=== PATIENT | female | born 1975 | race Caucasian/White ===

== ENCOUNTER 2016-11-12 14:00 | Inpatient (IN) | payer OTHER ==
[~2016-11-12] VITALS: Ht 165.1 cm; Wt 62.8 kg
--- NOTE | ~2016-11-12 | CON ---
PATIENT'S NAME: GREGG MIRANDA [facility] AGE: 41 Y [address] ROOM: [place] [address] LOCATION: [facility] ADMIT DATE: 11/12/2016 Consultation DISCHARGE DATE: FAMILY PHYSICIAN: Leticia Rodrigues MD ATTENDING PHYSICIAN: Wesley BUCHANAN REFERRING PHYSICIAN: EVERETT BHATT MD A consult for Dr. Buchanan, hospitalist. HISTORY OF PRESENT ILLNESS: This pleasant, 41-year-old lady is referred for rehab evaluation, admitted on 11/12 with sudden onset of left upper extremity and to some extent left lower extremity weakness, and she noticed to have mild left facial droop also with some slurring of speech. CT scan was done in the local hospital which showed grossly to be within normal limits; however, MRI on 11/12 showed 2 areas of acute ischemic infarct in the right hemisphere. No hemorrhage or mass effect. PAST HISTORY OF SIGNIFICANCE: She has history of hereditary hemorrhagic telangiectasias. Does not smoke or drink, and she told me that she has no hypertension or diabetes. PHYSICAL EXAMINATION: VITAL SIGNS: Blood pressure 116/76, temperature 97.9, pulse 86, and respiration rate 16. She is 5 feet 5 inches tall and weighs 64.7 kg. HEENT: Head: Normocephalic. No visual cut or neglect at the present time. No double vision. Very mild left facial weakness. Tongue and soft palate are moving symmetrical. Voice is clear and not wet. Can move left upper extremity fairly well and left lower extremity also. She tells me that has recovered very nicely. Deep tendon reflexes are present and equal throughout. Good bowel and bladder control so far. MEDICATIONS: She is on the following medications: 1. Aspirin. 2. Labetalol hydrochloride. 3. Ambien. 4. Tylenol. 5. NaCl 0.9%. 6. Artificial Tears. 7. Lipitor. 8. Protonix. PATIENT'S NAME: GREGG MIRANDA [facility] AGE: 41 Y [address] ROOM: [place] [address] LOCATION: [facility] ADMIT DATE: 11/12/2016 Consultation DISCHARGE DATE: FAMILY PHYSICIAN: Leticia Rodrigues MD ATTENDING PHYSICIAN: Wesley BUCHANAN ASSESSMENT AND PLAN: At this time, she has made good recovery. I feel she can go on outpatient and follow with her family physician. She should not drive for the time being until she is reevaluated. I will continue her PT, OT, and speech which has been already initiated. I will follow alongside with you while she is here. Thank you for this referral. If she does not do well, I will re-evaluate her for possible rehab admission. ANTHONY BERRY MD WMMarya/modl /[id number] d: 11/13/16 1515 t: 11/14/16 0809, CONSULTATION REPORT
--- NOTE | ~2016-11-12 | DS ---
PATIENT'S NAME: GREGG MIRANDA [facility] AGE: 41 Y [address] ROOM: [address] [place], [place] [address] LOCATION: [facility] ADMIT DATE: 11/12/2016 Discharge Summary DISCHARGE DATE: 11/15/2016 FAMILY PHYSICIAN: Leticia Rodrigues MD ATTENDING PHYSICIAN: Wesley LOPES PRINCIPAL DIAGNOSES: 1. Cryptogenic right ischemic stroke. 2. History of hereditary hemorrhagic telangiectasias. 3. 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 4. Dyslipidemia. 5. PFO on the transesophageal echocardiogram. HOSPITAL COURSE: This is a 41-year-old lady with a past medical history of possible hereditary hemorrhagic telangiectasias presented to the [facility] with possible TIA. She felt numbness of her left upper extremity as well as weakness of the left lower extremity. In the emergency department, she was also noted to have slurred speech. She had a CAT scan of the head done which was unremarkable. The patient's symptoms improved during the stay and was sent back with some left arm paresthesias. Neuro Tele consult was called and it was decided to admit the patient to the [facility]. Here neurological consultation was obtained and MRI of the brain was done, which did reveal two areas of acute ischemic infarct in the right hemisphere. No hemorrhagic or mass affect was seen. MRA of the head was done, which was unremarkable. Doppler study of the carotids were done which were unremarkable as well. A transesophageal echocardiography was also done, which per verbal report showed evidence of PFO. I do not still have the official report yet. The patient will be sent home on aspirin at this point. I had a discussion with the patient regarding this happening and I advised her to schedule an appointment with the [facility] and we will make arrangements for that. She also carries the history of hemorrhagic telangiectasia for which she also needs a pulmonary consult as multiple family members did have hemorrhage in the lung necessitating lobectomies. DISCHARGE MEDICATIONS: Include: 1. Aspirin 81 mg p.o. every day. 2. Tylenol 650 mg p.o. every 4 hours as needed for pain. 3. Depo Provera 150 mg IM. 4. Polyvinyl alcohol 1 drop in the eye. ACTIVITY: No driving for 3 months until re-evaluation. FOLLOWUP: Appointment with Dr. Shoemaker for HHD and follow up with Neurology in 2 weeks at the [facility] for further workup of her cryptogenic stroke which could be related to PFO. PATIENT'S NAME: GREGG MIRANDA [facility] AGE: 41 Y [address] ROOM: [place] [address] LOCATION: [facility] ADMIT DATE: 11/12/2016 Discharge Summary DISCHARGE DATE: 11/15/2016 FAMILY PHYSICIAN: Leticia Rodrigues MD ATTENDING PHYSICIAN: Wesley LOPES MD DAMIAN GODINEZ/ashley /[id number] d: 11/16/16 0101 t: 11/23/16 1313, DISCHARGE SUMMARY
--- NOTE | ~2016-11-12 | ECHO ---
Transesophageal Echocardiography Report (DURAN) Demographics Patient Name GREGG MIRANDA Date of Study 11/14/2016 Patient Number [id number] Visit Number [id number] Date of 1975 Room Number G6230 Gender Female Number Age 41 year(s) Referring Jon Rene Camera Maker Rebecca Angeles RDCS, Physician MD PEARSONT Ravi Curiel MD Physician Interpreting Jon Rene Supervisor Shipfitters Physician MD Supervising Ordering Jon Rene MD/KHANHP Physician MD Nurse Stress Gripper Installer Conclusions Summary PFO. Procedure Type of Study DURAN procedure Procedure Date Date: 11/14/2016 Start: 03:42 PM Study Location: Inpatient Portable Technical Quality: Adequate visualization Indications:CVA. Appropriate Use Criteria: 9 Patient Status: Routine HR: 86 bpm BP: 110/76 mmHg O2 Saturation: 97 % DURAN Performed By: the attending and the executive pilot Type of Anesthesia: Moderate sedation Contractility Score LV regional wall motion:(0-Non visualized 1-Normal 2-Hypokinesis 3-Akinesis 4-Dyskinesis 5-Aneurysm) Signature dtt: Anju Webb dtd: 11/14/16 1542 Physician Self Edit
--- NOTE | ~2016-11-12 | ECHO ---
Transthoracic Echocardiography Report (TTE) Demographics Patient Name GREGG MIRANDA Date of Study 11/13/2016 Patient Number [id number] Visit Number [id number] Date of 1975 Room Number G6230 Gender Female Number Age 41 year(s) Referring Dewayne Olson Body Designer Radha Espana, Physician RT,RVT,RDCS Physician Interpreting Jon Rene MD Mail Handler Equipment Operator Physician Supervising Ordering Dewayne Olson MD/MLP Physician Nurse Stress Software Client Architect Conclusions Contractility Score Summary Normal Left Ventricular contractility was noted. Summary Normal cardiac chamber sizes. No significant valvular abnormalities. Normal LV size and function. Procedure Type of Study TTE procedure:2D Echocardiogram, M-Mode, Doppler , Color Doppler. Procedure Date Date: 11/13/2016 Start: 07:23 AM Study Location: Inpatient Portable Technical Quality: Good visualization Appropriate Use Criteria: 9 Patient Status: Routine HR: 79 bpm BP: 116/76 mmHg M-Mode/2D Measurements LV Diastolic Dimension: 4.51 cm LV Systolic Dimension: 2.82 cm LV Septum Diastolic: 0.58 cm LV Septum Systolic: 1.01 cm LV PW Diastolic: 0.72 cm LV PW Systolic: 1.04 cm Cardiac Output: 3.23 l/min AO Root Dimension: 2.9 cm RV Diastolic Dimension: 1.98 cm LA Dimension: 1.6 cm EF Estimated: 65 % MV EPSS: 0.3 cm LVOT: 1.8 cm LVOT VTI: 16.1 cm LV Stroke volume: 40.95 ml Doppler Measurements AV Peak Velocity: 1.21 m/s MV Peak E-Wave: 0.83 m/s AV Peak Gradient: 5.86 mmHg MV Peak A-Wave: 0.5 m/s AV Mean Gradient: 3 mmHg MV E/A Ratio: 1.66 LVOT Peak Velocity: 0.82 m/s MV P1/2t: 52 msec TR Gradient:6.66 mmHg PV Peak Velocity: 0.84 m/s Estimated RAP:10 mmHg PV Peak Gradient: 2.84 mmHg Estimated RVSP: 17 mmHg Estimated PASP: 16.66 mmHg E' Septal Velocity: 0.09 m/s A' Septal Velocity: 0.07 m/s MV E/E' Ratio: 9.6 Findings Left Ventricle Normal left ventricle size and function. Right Ventricle Normal right ventricle structure and function. Left Atrium Normal left atrial size. Right Atrium Normal right atrial size. Mitral Valve Normal mitral valve structure and function. Aortic Valve Normal aortic valve structure and function. Tricuspid Valve Normal tricuspid valve structure and function. Pulmonic Valve Normal pulmonic valve structure and function. Pericardial Effusion No evidence of pericardial effusion. Miscellaneous Visualized portions of the aortic root and ascending aorta appear normal in size. Pleural Effusion No evidence of pleural effusion. Contractility Score LV regional wall motion:(0-Non visualized 1-Normal 2-Hypokinesis 3-Akinesis 4-Dyskinesis 5-Aneurysm) Signature dtt: Anju Webb dtd: 11/13/16 0723 Physician Self Edit
--- NOTE | ~2016-11-12 | ENPV ---
Carotid Duplex Study Demographics Patient Name GREGG MIRANDA Date of Study 11/13/2016 Patient Number [id number] Gender Female Date of 1975 Age 41 Visit Number [id number] Height 65 Accession Number [id number] Weight 142 Referring Dewayne Malhotra Physician Physician Physician Ordering Dewayne Olson District Recruiter Physician Plastic Press Operator Radha Espana, RT,RVT,RDCS Conclusions Summary TECHNIQUE: Ultrasound assessment of the carotids, vertebrals, and subclavians in standard fashion with image documentation utilizing driscoll scale, spectral Doppler, and color flow. FINDINGS: No plaque or malformation is seen within the carotids on either side. Flow velocities are within normal limits. The vertebrals show patency with antegrade flow bilaterally. IMPRESSION: 1. NORMAL CAROTID DOPPLER EXAM. Procedure Type of Study: Cerebral:Carotid, Carotid Doppler Bilateral. Appropriate Use Criteria:9 Patient Status:Routine. Study Location:Inpatient Portable. Technical Quality:Good visualization. Velocities are measured in cm/s ; Diameters are measured in cm Carotid Right Measurements Carotid Left Measurements + +--------+--------+ + + + +--------+- -------+ + + !Location !PSV !EDV !Angle !%Stenosis ! !Location !PSV !E DV !Angle !%Stenosis ! + +--------+--------+ + + + +--------+- -------+ + + !Prox CCA !111 !26 !60 !Normal ! !Prox CCA !83 !2 0 !60 !Normal ! + +--------+--------+ + + + +--------+- -------+ + + !Dist CCA !93 !22 !60 !Normal ! !Dist CCA !84 !2 9 !60 !Normal ! + +--------+--------+ + + + +--------+- -------+ + + !Prox ICA !89 !28 !60 !Normal ! !Prox ICA !64 !2 5 !60 !Normal ! + +--------+--------+ + + + +--------+- -------+ + + !Mid ICA !89 !34 !60 !Normal ! !Mid ICA !70 !3 2 !54 !Normal ! + +--------+--------+ + + + +--------+- -------+ + + !Dist ICA !87 !39 !60 !Normal ! !Dist ICA !79 !3 6 !54 !Normal ! + +--------+--------+ + + + +--------+- -------+ + + !Prox ECA !95 ! !60 !Normal ! !Prox ECA !118 ! !60 !Normal ! + +--------+--------+ + + + +--------+- -------+ + + !Vertebral !40 ! !60 !Normal ! !Vertebral !70 ! !60 !Normal ! + +--------+--------+ + + + +--------+- -------+ + + - There is antegrade vertebral flow noted on the right side. - There is antegrade verte bral flow noted on the left side. - Add'l Measurements:Subclavian PRV 88 cm/sICAPSV/CCAPSV - Add'l Measurements:Subcl jailyn PRV 93 cm/sICAPSV/CCAPSV 0.8.ICAEDV/CCAEDV 1.52. 0.95.ICAEDV/CCAEDV 1.82. Impressions Right Impression Right vertebral antegrade flow. No significant plaque or stenosis seen. Appearance of solid mass in right thyroid. Left Impression Left vertebral antegrade flow. No significant plaque or stenosis seen. Signature dtt: Fabricio Morillo dtd: 11/13/16 0747 Physician Self Edit
--- NOTE | ~2016-11-12 | CON ---
PATIENT'S NAME: GREGG MIRANDA [facility] AGE: 41 Y [address] ROOM: [address] [place], [place] [address] LOCATION: [facility] ADMIT DATE: 11/12/2016 Consultation DISCHARGE DATE: FAMILY PHYSICIAN: Leticia Rodrigues MD ATTENDING PHYSICIAN: Wesley LOPES DATE OF CONSULTATION: 11/13/2016 REFERRING PHYSICIAN: EVERETT BHATT MD TIME: 11:15 a.m. CHIEF COMPLAINT: Left extremity weakness. HISTORY OF PRESENT ILLNESS: The patient is a 41-year-old female with a past medical history of possible hereditary hemorrhagic telangiectasia. She presents here from [facility] with stroke-like symptoms. The patient states that around 11:45, while working at the [employer], she felt numbness of her left upper extremity. She really thought it was a pinched nerve, but a co-worker convinced her to go to the emergency room. In the emergency department, the patient was noted to have slurred speech. They immediately did a head CT which was unremarkable. The patient's symptoms improved during the stay and was back to normal except had some left hand paresthesia. Teleneurology was contacted at that time and recommended transfer to our hospital for further workup. The patient reports that she has had these symptoms about 3 times. The patient denies any headache, vision change, vertigo, nausea, vomiting, abdominal pain, diarrhea, or loss of consciousness. Of note, her past medical history includes positive for hemorrhagic telangiectasia. Although she has never been formally tested, she does have an aunt who underwent genetic testing for the disease and tested positive. Her mother, grandmother, and cousins as well as a sister have symptoms of the disease. The patient has nosebleeds occasionally. Her mother, at age 8, had to have part of her lung removed secondary to hemorrhage, and her sister had part of her lung removed at age 37 due to pulmonary hemorrhage. Her sister has also had a stroke at age 8, but they did not know if this was due to her cerebral palsy. Her aunt is the only one that has had the confirmatory genetic testing. She has decided not to have it due to the cost, and she certainly has the symptoms to suggest she is positive for the disease. PAST MEDICAL HISTORY: Includes the hereditary hemorrhagic telangiectasia. PAST SURGICAL HISTORY: PATIENT'S NAME: GREGG MIRANDA [facility] AGE: 41 Y [address] ROOM: [address] [place], [place] [address] LOCATION: [facility] ADMIT DATE: 11/12/2016 Consultation DISCHARGE DATE: FAMILY PHYSICIAN: Leticia Rodrigues MD ATTENDING PHYSICIAN: Wesley LOPES None. FAMILY HISTORY: As mentioned in the HPI, for the hereditary hemorrhagic telangiectasia. She does not know her father. She is and has 2 children. SOCIAL HISTORY: She denies smoking and drinking. She works in the [employer]. She is . She has 2 teenage children. MEDICATIONS: She is on no home medications. REVIEW OF SYSTEMS: All systems have been reviewed and are negative except for what is mentioned in the HPI. PHYSICAL EXAMINATION: VITAL SIGNS: Afebrile, blood pressure 130/72, heart rate 87, respiratory rate 16, and saturating 96% on room air. GENERAL APPEARANCE: The patient is alert, awake, in no acute distress, and participates in the exam. HEENT: Her head is normocephalic and atraumatic. Nose: No nasal discharge. No nosebleeds at this time. Eyes: Extraocular movements are intact. CHEST: Clear to auscultation bilaterally. HEART: Regular rate and rhythm without murmur, rub, or gallop. ABDOMEN: Soft, nontender, and nondistended with positive bowel sounds. NEUROLOGIC: She is alert and oriented x4. Upper and lower extremities 5/5. Sensation intact. The NIH Stroke Scale at this time is 0. LABORATORY DATA: Includes an LDL of 133. She did have an MRA of her brain which was normal. MRI shows a 2.4 x 1.5 cm acute ischemic infarct in the right lateral frontal lobe and a 3.1 x 2.5 acute ischemic infarct in the right lateral parietooccipital junction. There is a tiny lacunar infarct in the posterior right cerebellum. 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 ASSESSMENT AND PLAN: 1. Ischemic stroke. We will continue with an echocardiogram and a carotid Doppler study. In light of her possible Gvqmo-Dafsb-Xhize syndrome, we also will acquire a DURAN and workup for hypercoagulable studies. 2. 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 We would recommend pulmonary consult for this. The above recommendations were discussed with Dr. Harley, hospitalist. The PATIENT'S NAME: GREGG MIRANDA [facility] AGE: 41 Y [address] ROOM: [place] [address] LOCATION: [facility] ADMIT DATE: 11/12/2016 Consultation DISCHARGE DATE: FAMILY PHYSICIAN: Leticia Rodrigues MD ATTENDING PHYSICIAN: Wesley LOPES patient was involved in the plan of care. Dr. Dennis and I developed the plan of care and saw the patient together. Thank you for the opportunity to participate in this patient's care. If you have any questions, please do not hesitate to notify us. FARZANEH CLEVELAND APRN FOR MORELIA PITTMAN MD PP/modl /[id number] d: 11/13/168 t: 11/14/16 1729, CONSULTATION REPORT
--- NOTE | ~2016-11-12 | HP ---
[facility] 41 [facility] [address] ROOM: [place] [address] LOCATION: [facility] ADMIT DATE: 11/12/2016 History & Physical DISCHARGE DATE: FAMILY PHYSICIAN: Leticia Rodrigues MD ATTENDING PHYSICIAN: Wesley LOPES DATE OF SERVICE: CHIEF COMPLAINT: Left extremity weakness. HISTORY OF PRESENT ILLNESS: The patient is a 41-year-old female with past medical history of possible hereditary hemorrhagic telangiectasia, who presents here from [facility] with possible TIA. The patient reports that around 11:45 a.m. while working at [facility], she felt numbness of her left upper extremity. Subsequently, this symptom was continued to have weakness of left upper extremity and also left lower extremity. In the emergency department, the patient was noted to have slurred speech. The patient was seen in the emergency department and had a CT head that was unremarkable. The patient's symptoms improved during the stay and was back to normal except some left hand paresthesias. Neuro-tele was called and was decided to admit the patient to our hospital for further workup. The patient reports that she has had these symptoms in the past close to 3 times; however, the prior symptoms mostly numbness of her left upper extremity did not much involved of weakness. The patient denies headache, vision change, vertigo, nausea, vomiting, abdominal pain, diarrhea, and loss of consciousness. PAST MEDICAL HISTORY: Hereditary hemorrhagic telangiectasia. PAST SURGICAL HISTORY: None. FAMILY HISTORY: Mother had hereditary hemorrhagic telangiectasia. She does not know her father. SOCIAL HISTORY: She denies smoking, and she seldomly drinks. 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 MEDICATIONS: Currently being reconciled. [facility]: 41 Y [address] ROOM: [place] [address] LOCATION: [facility] ADMIT DATE: 11/12/2016 History & Physical DISCHARGE DATE: FAMILY PHYSICIAN: Leticia Rodrigues MD ATTENDING PHYSICIAN: Wesley LOPES REVIEW OF SYSTEMS: All systems have been reviewed and are negative except for what I mentioned in the HPI. PHYSICAL EXAMINATION: VITAL SIGNS: Afebrile, blood pressure 120/74, heart rate 92, respiratory rate 16, saturating 95% on room air. GENERAL APPEARANCE: The patient is alert and awake, in no acute distress. HEAD: Normocephalic, atraumatic. NOSE: No nasal discharge. EYES: Extraocular muscle intact. ORAL: Moist oral mucosa. Oral cavity shows small 2 or 3 telangiectasias seen in tongue. CHEST: Clear to auscultation bilaterally. HEART: Regular rate and rhythm. No murmurs, rubs, or gallops heard. ABDOMEN: Soft, nontender, and nondistended. Bowel sounds present. EXTREMITIES: No edema. SKIN: Warm to touch. CABINETMAKER APPRENTICE: Alert and oriented x3. Upper and lower extremities strength 5/5. Sensory grossly intact. Cranial nerve 2 through 12 grossly intact. The patient was able to ambulate without ataxia. LABORATORY DATA: Labs drawn from [facility], white blood cell count of 7.5, hemoglobin 15, platelet of 297. Sodium of 136, potassium of 4.6, CO2 of 22, creatinine of 1, and blood glucose of 100. ASSESSMENT AND PLAN: 1. Transient ischemic attack. The patient is a 41-year-old lady with past medical history of hereditary hemorrhagic telangiectasia, who presents from [facility] with possible transient ischemic attack, initial NIH stroke scale of 4, now back to normal, NIH Score is zero; ABCD2 score of 3 points with 2-Day Stroke Risk of 1%. We will admit the patient for observation. We will acquire MRI of the brain without contrast. MRA of the brain without contrast and carotid Doppler. We will also acquire echocardiogram. We will also consult Neurology for support. We will start the patient on aspirin. The patient has received a full-dose aspirin at the outside hospital, to continue 81 mg daily, and we will add Lipitor 80 mg daily. 2. Hereditary hemorrhagic telangiectasia. The patient reports that her mother has the same disease. No obvious severe disease has mild telangiectasias in tongue. No signs of bleeding or history of severe bleeding. To follow clinically. Greater than 30 minutes was spent on patient care. Greater than 50% spent in direct patient care and consultation. We will admit the patient for PATIENT'S NAME: GREGG MIRANDA [facility] AGE: 41 Y [address] ROOM: [address] [place], [place] [address] LOCATION: [facility] ADMIT DATE: 11/12/2016 History & Physical DISCHARGE DATE: FAMILY PHYSICIAN: Leticia Rodrigues MD ATTENDING PHYSICIAN: Wesley LOPES observation. Assessment and plan discussed with the patient. The patient is full code on admission. MD BIANCA JUNIOR/modl /[id number] D: 200 T: [id number] HISTORY & PHYSICAL
[2016-11-12] MEDS ORDERED: DEPO-PROVE150 MG/1 M IM (15:16)
[2016-11-12] MEDS ORDERED: ADVIL200 MG PO (15:17)
[2016-11-12] MEDS ORDERED: ALLERGY SHOT IM (15:18)
[2016-11-12] MEDS ORDERED: ARTIFICIAL TEAR15 ML OPHTH (15:18)
--- NOTE | 2016-11-12 16:37 | NUR ---
41 Y/O FEMALE ADMITTED FROM [facility] FOR A TIA. PT HAD BEEN HAVING NUMBNESS & WEAKNESS ON HER LEFT SIDE - FACE, ARM, HAND, LEG & FOOT, ALSO SLURRED SPEECH TODAY. NKMA PT HAS NEVER HAD ANY OPERATION IN HER LIFETIME & MINIMAL MEDICAL HISTORY. WEARS GLASSES, SEASONAL ALLERGIES, RARE HEADACHE, RECEIVES DEPO PROVERA INJECTIONS. 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 FAMILY INFORMS ME THAT IT IS A VASCULAR DISORDER AND THERE HAVE BEEN FAMILY MEMBERS FROM THIS. REPORT GIVEN TO PT PRIMARY CARE NURSE IVORY RN ADM EDUCATION COMPLETED
--- NOTE | 2016-11-12 17:21 | NUR ---
Significant Event:PT IS AAOX3. L) FACIAL DROOP. L) ARM/HAND HAVE NUMBNESS AND TINGLING. NIHSS 2. CLEAR LUNG SOUNDS ACTIVE BS. BRUISING NOTED TO HER LEGS. NO C/O PAIN. WENT DOWN FOR MRI. IV X2 SL'D. Follow up:
--- NOTE | 2016-11-13 03:52 | NUR ---
Significant Event:Patient alert and ox3. Up with STBA. C/o headache, states fairly tolerable. did give tylenol x1 at 2226. Moves all extremeites spontaneiously and to command. States some numbness to left hand/fingeres at times, but overall slightly better. NIHSS 1. No facial droop noted. HR has remained in the 70-80's this shift. PIV x2 to bilateral hands saline locked. Follow up:Monitor Headache.
--- NOTE | 2016-11-13 12:37 | NUR ---
1040 Tried to see Jania but therapy staff was in working with her. Will stop back by to visit with her later. In reviewing her information, it appears that she lives in [place], [place] with her kids and it is the plan to have her return there in the next 1-2 days per nursing staff. CM to continue to follow and assist.
--- NOTE | 2016-11-13 17:51 | NUR ---
Significant Event: Patient is A&O x3. Follows commands. Equal strength in all extremities. Denies numbness & tingling. NIHSS = 0. VSS. Complained of a frontal headache & gave Tylenol @ 0947 & 1527 with relief noted. Accuchecks D/C'd. IV to both hands SL. NPO after midnight for DURAN which is scheduled for 1300 tomorrow. Daughters @ bedside. Up with SBA. Cooperative with cares. Follow up: Monitor neuro.
--- NOTE | 2016-11-14 05:13 | NUR ---
Significant Event: Patient is alert and oriented x 3. Denies numbness or tingling. Does c/o a frontal headache at times-relieved with Tylenol. Moves spontaneously and follows commands. Equal strength. PERRL. 2+ pulses. VSS. Afebrile. HTN. Anxious about DURAN today. NPO since midnight. Good appetite previously. Daughter at bedside. No edema. On room air. Lungs clear. IV to left and right hand SL with no complications. NIHSS 0. Had Ambien at HS. SCDs in place. Received a shower this shift. Supervise in room. Follow up: NIHSS, pain management
--- NOTE | 2016-11-14 14:31 | NUR ---
1335 Stopped by to see Jania, but she was sleeping so I didn't wake her. Lots of family in the room. Per RN her plan is to return home in the next 1-2 days with no anticiapted discharge needs.
--- NOTE | 2016-11-14 17:13 | NUR ---
Significant Event:Patient is alert and oriented times three. NIH-SS 1 for slight facial droop. PERRLA. CSM intact. Denies numbness or tingling. Anxious this shift. Lungs clear throughout. VSS on rom air. SA on telemetry. Bowel sounds active. Patient voids per the bathroom with standby assist. Bilateral calf pumps in place. Complained of a headache early this shift relieved by Tylenol. Peripheral IV time to each hand saline locked. Regular diet. DURAN this shift returned to the floor at 1710, patient states plan is to discharge to home. Follow up:
--- NOTE | 2016-11-15 04:36 | NUR ---
Significant Event:Patient alert and ox3. Up with STBA. C/o slight headache with tylenol given at HS. NIHSS 0. Moves all extremeties. No c/o numb/tingling. Did get slightly hypotensive this shift with SBP in the 90's, baseline SBP in the 100-110's. Does get anxious at times. Follow up:Monitor for CARR. Probable home today.
[2016-11-15] MEDS ORDERED: ASPIRIN (CHILDR81 MG PO (09:37)
[2016-11-15] MEDS ORDERED: LIPITOR40 MG PO (09:38)
[2016-11-15] MEDS ORDERED: TYLENOL325 MG PO (09:41)
--- NOTE | 2016-11-15 10:13 | NUR ---
A&O.IND.VSS. LS CLEAR. DENIES N/T. NO WEAKNESS/RESIDUAL FROM TIA. NIH 0. DISCHARGE INSTRUCTIONS REVIEWED. IV DC'D UPON DISMISSAL. PT DAUGHTER AT BEDSIDE. PT TAKEN TO LOBBY VIA WC TO PRIVATE VEHICLE HOME.
== END 2016-11-15 10:07 | disposition disaster alternative care site (69) | DRG 65 ==
LOC: EDSTATUS 14:00 → GNTU 15:06
PROVIDERS: ADMIT Internal Medicine
DX: I63.9 Cerebral infarction, unspecified (principal); Q21.1 Atrial septal defect; I78.0 Hereditary hemorrhagic telangiectasia; G81.94 Hemiplegia, unspecified affecting left nondominant side; G80.9 Cerebral palsy, unspecified; R20.2 Paresthesia of skin; E78.5 Hyperlipidemia, unspecified; R47.81 Slurred speech
CPT/HCPCS: J2060; J7030